=== PATIENT | female | born 1990 | race African-American/Black ===

== ENCOUNTER 2017-01-08 07:15 | Inpatient (IN) ==
[2017-01-08 08:14] LABS: Apearance,Urine CLEAR (Clear); Bilirubin,Urine Negative (Negative); Blood, Urine Small mg/dL (Negative); Glucose,Urine (UA) Negative (Negative); Ketones,Urine Negative (Negative); Mucus,Urine Occasional /LPF (Occasional); Nitrite,Urine Negative (Negative); Protein,Urine Negative; Squamous Epithelial Cell,Urine Occasional /HPF (0-10); Urine Color Straw (Yellow); Urine Specific Gravity 1.009 (1.001-1.035); Urine Urobilinogen < 2.0 EU/DL (0.2-1.0); WBC,Urine 3 /HPF (0-6)
[2017-01-08] MEDS ORDERED: BUTORPHANOL 2 MG/ML VIAL IV PRN (08:51)
[2017-01-08] MEDS ORDERED: MEPERIDINE 50 MG/1 ML VIAL IV PRN (08:51)
[2017-01-08] MEDS ORDERED: ONDANSETRON 4 MG/2 ML VIAL IV PRN (08:51)
[2017-01-08] MEDS ORDERED: OXYTOCIN/LR 20 UNIT/1,000 ML BAG IV SCH (09:00)
[2017-01-08] MEDS: LACTATED RINGERS 1,000 ML IV SCH ×2 (09:03→11:01)
[2017-01-08 09:25] LABS: Basophils % 0.2 % (0.0-0.8); Eosinophils % 0.5 % (0.00-10.9); Hematocrit 26.1 VOL% (35.7-47.0); Immature Granulocytes % 0.4 %; Immature Granulocytes Absolute 0.02 #; Lymphocytes # 1.1 10*3/uL (1.4-4.0); Lymphocytes % 20.3 % (21.3-54.2); Mean Corpuscular HGB Conc 30.7 GM/DL (32-36); Mean Corpuscular Hemoglobin 29 PG (27-34); Mean Corpuscular Volume 92.9 FL (87-102); Mean Platelet Volume 9.5 FL (9.6-12.0); Monocytes # 0.5 10*3/uL (0.11-0.8); Monocytes % 9.1 % (1.7-12.7); Neutrophils # 3.9 10*3/uL (1.4-7.4); Neutrophils % 69.5 % (38.7-73.9); Platelet Count 241 T/CUMM (130-400); Red Blood Count 2.81 MC/CUMM (3.8-5.5); Red Cell Distribution Width 13.4 % (9.3-17.3); White Blood Count 5.6 T/CUMM (4-12)
--- NOTE | 2017-01-08 09:42 | OB/GYN History & Physical ---
History of Present Illness Chief complaint: In for active labor. History of present illness: Ms. Egan is a 26 year old female 3 para 2. Her EDC is 01/16/2017 estimated gestational age 38 and 6/7 weeks. The patient presents to the labor department in active labor. The risks and benefits been thoroughly discussed with the patient and significant other plan care has been discussed with Dr. Bennett, all parties are in agreement with plan. The patient received her care through the [facility] and she received routine care throughout. Her course was uneventful. labs: She is O+, RPR is nonreactive, hepatitis B negative, HIV negative, rubella was immune, and GBS cultures negative. Home Medications Medication Instructions Recorded Confirmed Type Vit No.124/Iron/FA 1 each PO DAILY 01/08/17 01/08/17 History [ Vitamin Tablet] Allergies Allergy/AdvReac Type Severity Reaction Status Date / Time penicillin G Allergy Severe Swelling Verified 01/08/17 07:41 of Lip/Tongue/Throat 12 point system: reviewed and no additional remarkable complaints except as stated Medical,Surgical,& Family Hx - Medical History Medical History: noncontributory Reproductive: History of: Sexually Transmitted Disorders (Trich @ age 16) - Surgical History Surgical History: noncontributory - Family History Family History: Reports;: Family Cancer, Family Diabetes, Family Hypertension - Social History Smoking Status: Never smoker Marital Status: Single Lives With:: Significant Other Functional capacity: independent ambulation Exam [employer] - Constitutional General appearance: mild distress - Antepartum / Post Antpartum Exam Cervix -Dilatation: 4-5 cm Effacement: 80% Station: -1 Rupture: Intact Presentation: vtx Heart Rate: 140s Breast: bilateral: normal Abdomen obstetrics: Present: bowel sounds normal Vagina: Present: discharge Uterus exam: Present: enlarged Anus/Rectum: Present: normal perianal skin - Respiratory Respiratory exam: Present: clear to auscultation bilaterally - Cardiovascular Cardiovascular exam: Present: regular rate and rhythm - GI/Abdominal GI/Abdominal exam: Present: normal bowel sounds, soft - Extremities Exam Extremities exam: Present: normal inspection - Neurological Exam Neurological exam: Present: alert, oriented X3 - Psychiatric Psychiatric exam: Present: normal affect, normal mood - Skin Skin exam: Present: normal color, warm Assessment and Plan (1) Term Status: Acute Assessment and plan: Admit IV Fluids IV Pitocin per protocol AROM Epidural if desired Anticipate Current Visit: Yes (2) Active labor at term Status: Acute Assessment and plan: Same as above Current Visit: Yes Results - Labs CBC & BMP: 01/08/17 09:10
[2017-01-08] MEDS ORDERED: FAMOTIDINE 20 MG/2 ML VIAL IV ONE (11:01)
[2017-01-08] MEDS ORDERED: ePHEDrine 50 MG/ML AMP IV PRN (11:01)
[2017-01-08] MEDS ORDERED: diphenhydrAMINE 50 MG/1 ML VIAL IV PRN (11:01)
[2017-01-08] MEDS ORDERED: PROMETHAZINE 25 MG/1 ML VIAL IM ONE (11:01)
[2017-01-08] MEDS ORDERED: hydrOXYzine HCL 25 MG/1 ML VIAL IM PRN (11:01)
[2017-01-08] MEDS ORDERED: fentaNYL 2 MCG/ROPIV 0.2% EPID 150 ML EPIDURAL SCH (11:01)
[2017-01-08] MEDS ORDERED: CITRIC ACID/SODIUM CITRATE 30 ML UDCUP ONE (11:07)
[2017-01-08] MEDS ORDERED: CITRIC ACID/SODIUM CITRATE 30 ML UDCUP PO ONE (11:08)
[2017-01-08] MEDS ORDERED: fentaNYL 2 MCG/ROPIV 0.2% EPID 0 ML EPIDURAL ONE (11:11)
--- NOTE | 2017-01-08 11:58 | Event Note ---
HPI: Ms. Egan is a 26-year-old female who presented to the labor department in active labor. The risks and benefits were thoroughly discussed with the patient and significant other, plan care was discussed with Dr. Bennett in all parties were in agreement with plan. It Stage I: The patient was admitted she received IV fluids and IV Pitocin per protocol. Artificial rupture membranes was performed with clear fluid noted. The patient progressed in labor with a CAT 1 tracing. She had an uneventful course of labor. She received a labor spinal when she was 9 cm dilated. Stage II: The patient was complete and complaining of present is adequate push. She pushed for approximately 5 minutes after which time the infant's head was delivered. Mouth and nose suctioned on the perineum. The remainder of the was delivered at 1148, viable female was noted. The infant was placed on the mom's abdomen for skin to skin bonding. Apgars were 9 at 1 minute and 9 at 5 minutes. weight 6 pounds and 12 ounces. Cord pH was obtained and sent to the lab. Stage III: A spontaneous delivery of a Graham placenta with a three-vessel cord noted. The placenta was further examined and appeared grossly intact. The vagina and cervix was inspected with no tears or lacerations noted. Estimated blood loss approximately 150 mL. At the time of dictation mother and baby are both in stable condition.
[2017-01-08] MEDS ORDERED: BENZOCAINE 20%/MENTHOL 0.5% SPRAY 56 GM CAN TOP PRN (11:59)
[2017-01-08] MEDS ORDERED: BISACODYL 10 MG SUPP RECTAL PRN (11:59)
[2017-01-08] MEDS ORDERED: DIPH/TET/ACEL PERT BOOSTER VACCINE 0.5 ML VIAL IM ONE (11:59)
[2017-01-08] MEDS ORDERED: ACETAMINOPHEN 325 MG TABLET PO PRN (11:59)
[2017-01-08] MEDS ORDERED: WITCH HAZEL PADS 100/JAR TOP PRN (11:59)
[2017-01-08] MEDS ORDERED: MEASLES/MUMPS/RUBELLA VACCINE 0.5 ML VIAL SUBCUT ONE (11:59)
[2017-01-08] MEDS ORDERED: oxyCODONE/ACETAMINOPHEN 5-325 MG TABLET PO PRN ×2 (11:59)
[2017-01-08] MEDS ORDERED: OXYTOCIN/LR 20 UNIT/1,000 ML BAG IV ONE (11:59)
[2017-01-08] MEDS ORDERED: RHO(D) IMMUNE GLOBULIN 300 MCG SYRINGE IM ONE (11:59)
[2017-01-08] MEDS ORDERED: LANOLIN 50% CREAM 0.3 OZ TUBE TOP PRN (11:59)
[2017-01-08] MEDS ORDERED: HYDROCORTISONE 2.5% RECTAL CREAM 30 GM TUBE TOP PRN (11:59)
[2017-01-08] MEDS ORDERED: ACETAMINOPHEN/CODEINE 300-30 MG TABLET PO PRN (12:00)
[2017-01-08 12:49] LABS: Cord Arterial Blood HCO3 21.3 MMOL/L
[2017-01-08 12:50] LABS: Cord Venous Blood HCO3 21.2 MMOL/L; Cord Venous Blood PCO2 30.1 MMHG; Cord Venous Blood PO2 26.5 MMHG
[2017-01-08] MEDS: IBUPROFEN 800 MG TABLET PO PRN (13:56)
[2017-01-08] MEDS ORDERED: ONDANSETRON 4 MG/2 ML VIAL ONE (17:14)
[2017-01-08] MEDS: ONDANSETRON 4 MG/2 ML VIAL IV PRN (17:38)
[2017-01-08] MEDS: DOCUSATE SODIUM 100 MG CAPSULE PO SCH (21:32)
[2017-01-08] MEDS: FERROUS SULFATE 325 MG TABLET PO SCH (21:32)
[2017-01-09 06:40] LABS: Basophils % 0.1 % (0.0-0.8); Eosinophils % 0.1 % (0.00-10.9); Hematocrit 26.5 VOL% (35.7-47.0); Hemoglobin 8.5 GM/DL (12.0-16.0); Immature Granulocytes % 0.4 %; Immature Granulocytes Absolute 0.03 #; Lymphocytes # 1.4 10*3/uL (1.4-4.0); Mean Corpuscular HGB Conc 32.1 GM/DL (32-36); Mean Corpuscular Hemoglobin 29 PG (27-34); Mean Corpuscular Volume 89.5 FL (87-102); Mean Platelet Volume 10.1 FL (9.6-12.0); Monocytes # 0.6 10*3/uL (0.11-0.8); Monocytes % 7.4 % (1.7-12.7); Neutrophils # 5.6 10*3/uL (1.4-7.4); Platelet Count 245 T/CUMM (130-400); Red Blood Count 2.96 MC/CUMM (3.8-5.5); Red Cell Distribution Width 13.1 % (9.3-17.3); White Blood Count 7.6 T/CUMM (4-12)
[2017-01-09] MEDS: DOCUSATE SODIUM 100 MG CAPSULE PO SCH ×2 (09:01→21:00)
[2017-01-09] MEDS: FERROUS SULFATE 325 MG TABLET PO SCH ×2 (09:01→21:00)
[2017-01-09] MEDS ORDERED: SUMAtriptan 6 MG/0.5 ML VIAL SUBCUT PRN (10:00)
[2017-01-09] MEDS: BUTALBITAL/ACETAMIN/CAFFEINE 50-325-40 MG TABLET PO PRN ×2 (10:23→16:30)
[2017-01-09] MEDS: ONDANSETRON 4 MG/2 ML VIAL IV PRN (10:24)
--- NOTE | 2017-01-09 10:49 | OB/GYN Progress Note ---
Assessment and Plan (1) Term Status: Acute Assessment and plan: Admit IV Fluids IV Pitocin per protocol AROM Epidural if desired Anticipate Current Visit: Yes (2) Active labor at term Status: Acute Assessment and plan: Same as above Current Visit: Yes (3) Vaginal delivery Status: Acute Assessment and plan: Initiate routine orders Consult anesthesia for suspected spinal headache Current Visit: Yes CHILD ADOLESCENT PSYCHIATRIST - PN: Subj Interval history: c/o headache and neck pain. Exam CHILD ADOLESCENT PSYCHIATRIST - Constitutional Vitals: Vital Signs Temp Pulse Resp BP Pulse Ox 01/09/17 07:22 98.2 F 66 18 91/54 98 01/09/17 04:00 97.7 F 64 18 101/63 97 01/09/17 02:00 18 01/09/17 00:00 97.6 F 66 18 105/53 98 01/08/17 21:58 18 01/08/17 20:00 97.5 F L 65 20 104/65 98 01/08/17 17:51 20 01/08/17 17:30 64 18 100/63 99 01/08/17 16:30 60 18 112/69 99 01/08/17 15:48 18 01/08/17 15:18 67 18 106/59 99 01/08/17 15:00 76 20 97/59 100 01/08/17 14:30 97.0 F L 70 20 106/67 100 General appearance: mild distress - Antepartum / Post Post Exam Breast: bilateral: normal Abdomen obstetrics: Present: bowel sounds normal Vagina: Present: normal moisture, discharge (light lochia rubra) Uterus exam: Present: enlarged (FF ML) Anus/Rectum: Present: normal perianal skin - Head Head exam: Present: other (headache) - Neck Neck exam: Present: other (Neck pain and stiffness) - Respiratory Respiratory exam: Present: clear to auscultation bilaterally - Cardiovascular Cardiovascular exam: Present: regular rate and rhythm - GI/Abdominal GI/Abdominal exam: Present: normal bowel sounds, soft - Extremities Exam Extremities exam: Present: normal inspection - Back Exam Back exam: Present: normal inspection - Neurological Exam Neurological exam: Present: alert, oriented X3 - Psychiatric Psychiatric exam: Present: normal affect, normal mood - Skin Skin exam: Present: normal color, warm Results - Labs CBC & BMP: 01/09/17 06:04
[2017-01-09] MEDS ORDERED: SUMAtriptan 25 MG TABLET PO ONE ×2 (20:34→21:00)
[2017-01-10] MEDS: IBUPROFEN 800 MG TABLET PO PRN (08:25)
[2017-01-10] MEDS: DOCUSATE SODIUM 100 MG CAPSULE PO SCH (09:03)
[2017-01-10] MEDS: FERROUS SULFATE 325 MG TABLET PO SCH (09:03)
--- NOTE | 2017-01-10 10:58 | Anesthesia ---
Anesthesia Post OP - Post Ansesthetic Evaluation Patient seen in post op: Yes Resp: within normal limits CV: within normal limits Mental: within normal limits Temp: within normal limits [id number]: within normal limits Nausea and Vomiting: within normal limits Pain: other (Patient's pain down to 4 from 08/25 yesterday. Takes ibuprofen and it goes down to a 2. Blood patch not indicated at this time. Call with any changes.)
[2017-01-10 12:03] VITALS: BP 108/69
--- NOTE | 2017-01-10 15:31 | Discharge Summary ---
Hospital Course - Hospital Course Hospital Course: Status post Postop day #2 Uterus is firm, Discharge Plan - Discharge Data Condition at Discharge: Stable Discharge Diet: advance to your usual diet Activity: increase activity as tolerated Hygiene: no restrictions Driving: no restrictions Contact your physician if you experience:: fever over 101 - Discharge Medications New Acetamin/Codeine 300-30 Tab [Tylenol/Codeine #3] 2 tablet PO Q4H PRN #20 tablet PRN Reason: Pain Mild (1-3) Ferrous Sulfate Tab [Feosol Original Tab] 325 mg PO BID #60 tablet Ibuprofen Tab [Motrin Tab] 800 mg PO Q6H PRN #30 tablet PRN Reason: Pain Moderate (4-7) No Action Vit No.124/Iron/FA [ Vitamin Tablet] 1 each PO DAILY - Follow Up or Referral - Forms/Instructions Exam - Constitutional Vitals: Period Temp Pulse Resp BP Sys/Cobb Pulse Ox Last 24 Hr 98.1 F-98.8 F 56-60 16-20 99-109/59-71 97-100 DS: Provider Date of admission: 01/08/17 08:51 Primary care physician: . No PCP Attending physician on admission: Oleg Bennett MD Consults: 01/08/17 08:51 Consult to Anesthesiology [CONS] Routine Consulting Provider: Reason for Anesthesiology: Epidural Consult Comment: Epidural for pain managment 01/08/17 11:59 Consult to Technical Adjuster [CONS] Routine Consult Technical Adjuster: Breast Feeding 01/09/17 09:34 Consult to Anesthesiology [CONS] Routine Consulting Provider: Uziel Pierre Reason for Anesthesiology: Other Consult Comment: Neck and head pain Discharging clinician: Oleg Bennett MD
== END 2017-01-10 16:10 | disposition home or self-care (01) | DRG 775 ==
LOC: INTOOBSV 07:15 → N.LD 07:15 → N.OB 14:41
PROVIDERS: ADMIT Obstetrics & Gynecology; ATTEND Obstetrics & Gynecology